=== PATIENT | female | born 1955 | race Caucasian/White ===

== ENCOUNTER 2018-08-16 16:32 | Emergency (ER) | payer BC, OTHER ==
[2018-08-16] MEDS ORDERED: Sodium Chloride 0.9% 1,000 ML IV SCH (17:15)
--- NOTE | 2018-08-16 17:21 | EDM.PDOC ---
<Jose R Orellana - Last Filed: 08/16/18 18:56> ED HPI GENERAL MEDICAL PROBLEM - General Chief Complaint: Abdominal Pain Stated Complaint: STOMCH PAIN RT SIDE Time Seen by Provider: 08/16/18 16:40 Source of Information: Reports: Patient, Family (), RN Notes Reviewed History Limitations: Reports: No Limitations - History of Present Illness INITIAL COMMENTS - FREE TEXT/NARRATIVE: The patient states that she developed sudden onset right upper quadrant and suprapubic pain around 14:00 this afternoon. The right upper quadrant pain was sharp and crampy in character, and has since resolved, but the suprapubic pain is crampy, and has improved, but is still persistent. Both pains waxed and waned. She felt improvement in her symptoms with belching, flatus, and having a bowel movement. She also felt better if she was supine, or in the left decubitus position. No associated fever, nausea, vomiting, constipation, diarrhea, or urinary symptoms. The patient states that she had similar symptoms about 10 or 15 years ago. An ultrasound of the right upper quadrant was reportedly negative. The cause of the patient's pain was never discovered. The patient states that she had a pie chef's salad around noon today. Patient's PCP is Dr. Erica Lombardo. Right Upper Abdomen Pain Score (Numeric/FACES): 2 - Related Data Allergies Allergy/AdvReac Type Severity Reaction Status Date / Time No Known Allergies Allergy Verified 08/16/18 16:49 Home Meds: Home Meds hydroCHLOROthiazide [Hydrochlorothiazide] 25 mg PO DAILY 08/16/18 [History] Past Medical History HEENT History: Reports: Impaired Vision Cardiovascular History: Reports: Hypertension Gastrointestinal History: Reports: GERD Genitourinary History: Reports: Renal Calculus, Urinary Incontinence (stress incontinence) Musculoskeletal History: Reports: Osteoarthritis - Past Surgical History HEENT Surgical History: Reports: Naso-Sinus Surgery GI Surgical History: Reports: Colonoscopy (x 2), EGD (x 1), Other (See Below) ( Hemorrhoid banding) Female Surgical History: Reports: D&C (x 3) Musculoskeletal Surgical History: Reports: Knee Replacement (bilateral) Social & Family History - Tobacco Use Years of Tobacco use: 8 Packs/Tins Daily: 0.5 Month/Year Tobacco Last Used: Quit 1984 - Alcohol Use Alcohol Use History: Yes Alcohol Use Frequency: Socially - Recreational Drug Use Recreational Drug Use: No - Living Situation & Occupation Living situation: Reports: , with Spouse Occupation: Retired ED ROS GENERAL - Review of Systems Review Of Systems: ROS reveals no pertinent complaints other than HPI. ED EXAM, GI/ABD - Physical Exam Exam: See Below Exam Limited By: No Limitations General Appearance: Alert, WD/WN, No Apparent Distress Eyes: Bilateral: Normal Appearance, EOMI Ears: Normal External Exam, Hearing Grossly Normal Nose: Normal Inspection Throat/Mouth: Normal Inspection, Normal Lips, Normal Voice, No Airway Compromise Head: Atraumatic, Normocephalic Neck: Normal Inspection, Full Range of Motion Respiratory/Chest: No Respiratory Distress, Lungs Clear, Normal Breath Sounds, No Accessory Muscle Use Cardiovascular: Normal Peripheral Pulses, Regular Rate, Rhythm, No Edema, No Gallop, No JVD, No Murmur, No Rub GI/Abdominal Exam: Normal Bowel Sounds, Soft, No Organomegaly, No Distention, No Abnormal Bruit, No Mass, Tender (Across the lower abdomen, with greatest tenderness in the right lower quadrant. Nontender elsewhere.) (Female) Exam: Deferred Rectal (Female) Exam: Deferred Back Exam: Normal Inspection, Full Range of Motion. No: CVA Tenderness (L), CVA Tenderness (R) Extremities: Normal Inspection, Normal Range of Motion, No Pedal Edema, Normal Capillary Refill Neurological: Alert, Oriented, Normal Cognition, No Motor/Sensory Deficits Psychiatric: Normal Affect Skin Exam: Warm, Dry, Intact, Normal Color, No Rash Course - Vital Signs Last Recorded V/S: Last Vital Signs Temp 36.6 C 08/16/18 16:47 Pulse 72 08/16/18 16:47 Resp 16 08/16/18 16:47 BP 172/98 H 08/16/18 16:47 Pulse Ox 100 08/16/18 16:47 - Orders/Labs/Meds Orders: Active Orders 24 hr Category Date Time Status Sodium Chloride 0.9% [Normal Saline] 1,000 ml Med 08/16/18 17:15 Active IV ASDIRECTED Medication Orders Sodium Chloride (Normal Saline) 1,000 mls @ 150 mls/hr IV ASDIRECTED ANNA Last Admin: 08/16/18 17:32 Dose: 150 mls/hr Labs: Laboratory Tests 08/16/18 08/16/18 08/16/18 Range/Units 17:28 17:28 17:33 WBC 6.72 (3.98-10.04) K/mm3 RBC 4.33 (3.98-5.22) M/mm3 Hgb 12.7 (11.2-15.7) gm/L Hct 37.6 (34.1-44.9) % MCV 86.8 (79.4-94.8) fl MCH 29.3 (25.6-32.2) pg MCHC 33.8 (32.2-35.5) g/dl RDW Std Deviation 41.7 (36.4-46.3) fL Plt Count 333 (182-369) K/mm3 MPV 8.3 L (9.4-12.3) fl Neutrophils % (Manual) 49 (40-60) % Band Neutrophils % 0 (0-10) % Lymphocytes % (Manual) 39 (20-40) % Atypical Lymphs % 0 % Monocytes % (Manual) 5 (2-10) % Eosinophils % (Manual) 4 (0.7-5.8) % Basophils % (Manual) 3 H (0.1-1.2) Platelet Estimate Adequate Plt Morphology Comment See note RBC Morph Comment Normal Sodium 138 (136-145) mEq/L Potassium 3.8 (3.5-5.1) mEq/L Chloride 101 (98-107) mEq/L Carbon Dioxide 28 (21-32) mEq/L Anion Gap 12.8 (5-15) BUN 11 (7-18) mg/dL Creatinine 0.8 (0.55-1.02) mg/dL Est Cr Clr Drug Dosing 70.01 mL/min Estimated GFR (MDRD) > 60 (>60) mL/min BUN/Creatinine Ratio 13.8 L (14-18) Glucose 106 (74-106) mg/dL Calcium 10.1 (8.5-10.1) mg/dL Total Bilirubin 0.3 (0.2-1.0) mg/dL AST 18 (15-37) U/L ALT 23 (14-59) U/L Alkaline Phosphatase 79 (46-116) U/L Total Protein 8.2 (6.4-8.2) g/dl Albumin 4.0 (3.4-5.0) g/dl Globulin 4.2 gm/dL Albumin/Globulin Ratio 1.0 (1-2) Urine Color Yellow (Yellow) Urine Appearance Clear (Clear) Urine pH 7.5 (5.0-8.0) Ur Specific [place] 1.015 (1.005-1.030) Urine Protein Negative (Negative) Urine Glucose (UA) Negative (Negative) Urine Ketones Negative (Negative) Urine Occult Blood Trace-intact H (Negative) Urine Nitrite Negative (Negative) Urine Bilirubin Negative (Negative) Urine Urobilinogen 0.2 (0.2-1.0) Ur Leukocyte Esterase Negative (Negative) Urine RBC 0-5 (0-5) /hpf Urine WBC Not seen (0-5) /hpf Ur Epithelial Cells Not Reportable Ur Squamous Epith Cells 0-5 (0-5) /hpf Urine Bacteria Not seen (FEW) /hpf Urine Mucus Not seen (FEW) /hpf Meds: Medications Generic Name Dose Route Start Last Admin Trade Name Freq PRN Reason Stop Dose Admin Sodium Chloride 1,000 mls @ 150 mls/hr 08/16/18 17:15 08/16/18 17:32 Normal Saline IV 150 mls/hr ASDIRECTED ANNA Administration Discontinued Medications Generic Name Dose Route Start Last Admin Trade Name Freq PRN Reason Stop Dose Admin Diatrizoate Meglum/Diatrizoate Sod 90 ml 08/16/18 17:33 08/16/18 18:37 Gastrografin 37% PO 08/16/18 17:34 90 ml ONETIME ONE Administration Iopamidol 100 ml 08/16/18 17:33 08/16/18 18:37 Isovue-370 (76%) IV 08/16/18 17:34 100 ml ONETIME ONE Administration - Re-Assessments/Exams Free Text/Narrative Re-Assessment/Exam: 08/16/18 17:12 While the patient initially complained of both right upper quadrant and suprapubic abdominal pain, on examination, she is tender only in the lower abdomen, with no tenderness to her right upper quadrant. The etiology of this is unclear, but I am concerned about unusual presentations of appendicitis or diverticulitis. I am therefore recommending a CT scan of the abdomen and pelvis with oral and IV contrast. I have ordered blood work and a urinalysis. The patient declined an offer for pain medication, and she reports no nausea at present, however, I will treat her with IV fluid. 08/16/18 19:00 The patient's CBC, CMP, and urinalysis are all unremarkable. The patient has undergone the CT scan of the abdomen and pelvis, however, the results are still pending. Care of the patient turned over to Dr. Wang at this time, for change of shift. Departure - Departure Disposition: Home, Self-Care 01 Clinical Impression: Abdominal pain of unknown cause - Discharge Information Referrals: Erica Lombardo MD [Primary Care Provider] - Forms: ED Department Discharge Additional Instructions: Return to emergency room with any questions problems worsening symptoms. Return in 24 hours if not better sooner if getting worse. Clear liquid diet for the next 24 hours then slowly advance as tolerated. If you have not had a desired bowel movement by the morning drink the bottle of mag citrate and see if this helps, if not may repeat mag citrate and 6 hours. <Tyler Wang - Last Filed: 08/16/18 19:23> Course - Re-Assessments/Exams Free Text/Narrative Re-Assessment/Exam: 08/16/18 19:19 Section is actually doing much better at this time. CT evaluation should no acute changes or obvious sources of her pain did notice this fairly full and consistent stool pattern throughout the colon. No other pathology identified. Discussed this with the patient has been and at this point she's can await and see if the oral contrast that she drank pushes a lot of this through and then we 'll try mag citrate in the morning. She understands in no uncertain terms return to emergency room if she thinks her condition is worsening and the cause of her discomfort is somewhat in question. Departure - Departure Time of Disposition: 19:21
[2018-08-16] MEDS ORDERED: Iopamidol 755 Mg/ML 200 ML Bottle IV ONE (17:33)
[2018-08-16] MEDS ORDERED: Diatrizoate Meglumine/Diatrizoate Sodium 37% 120 ML Bottle PO ONE (17:33)
--- NOTE | 2018-08-16 18:59 | CT ---
CT abdomen and pelvis Technique: Multiple axial sections were obtained from above the dome of the diaphragm inferiorly through to the pubic symphysis. Intravenous and oral contrast was utilized. Delayed images were obtained through the bladder. Comparison: No prior abdominal imaging is available. Findings: Visualized lung bases shows nothing acute. Cyst is noted within the dome of the right lobe of the liver measuring 3.1 cm. No additional abnormality is seen within the liver. Spleen appears within normal limits. Adrenal glands show no nodule. Kidneys show symmetric contrast enhancement without hydronephrosis or mass. Pancreas is normal. Aorta shows no aneurysm. No retroperitoneal adenopathy or mesenteric abnormalities are seen. No pelvic mass or adenopathy is seen. No free fluid or inflammatory change is seen. Delayed images shows contrast within the distal ureters and within the bladder. Slight increased stool is noted throughout the colon. Appendix is seen which is normal in size. No free fluid or inflammatory change is seen. Degenerative change and mild scoliosis is noted within the spine. Impression: 1. Mild increased stool throughout the colon. 2. Other incidental findings. Nothing acute is appreciated. Diagnostic code #2
[2018-08-16] MEDS ORDERED: Magnesium Citrate Solution 296 ML Bottle PO ONE (19:21)
== END 2018-08-16 19:30 | disposition home or self-care (01) ==
LOC: JD.ED 16:32
DX: R10.31 Right lower quadrant pain (principal); I10 Essential (primary) hypertension; K21.9 Gastro-esophageal reflux disease without esophagitis; Z79.899 Other long term (current) drug therapy; Z87.891 Personal history of nicotine dependence
CPT/HCPCS: 36415; 74177; 80053; 81001; 85007; 85027; 96360; 96361; 99284; A9270; J7040; Q9963; Q9967

== ENCOUNTER 2021-01-26 04:54 | Emergency (ER) | payer BC, OTHER ==
[2021-01-26] MEDS ORDERED: Ondansetron 4 MG/2 ML SDV IVPUSH ONE (05:40)
[2021-01-26] MEDS ORDERED: Sodium Chloride 0.9% 10 ML Syringe FLUSH PRN (05:40)
[2021-01-26] MEDS ORDERED: Sodium Chloride 0.9% 1,000 ML IV STA (05:40)
[2021-01-26] MEDS ORDERED: HYDROmorphone 0.5 MG/0.5 ML Syringe IVPUSH ONE (05:41)
--- NOTE | 2021-01-26 06:21 | EDM.PDOC ---
ED HPI GENERAL MEDICAL PROBLEM - General Chief Complaint: Gastrointestinal Problem Stated Complaint: COVID+ Time Seen by Provider: 01/26/21 05:09 Source of Information: Reports: Patient History Limitations: Reports: No Limitations - History of Present Illness INITIAL COMMENTS - FREE TEXT/NARRATIVE: The patient presents with right flank pain. This started about a week ago. The patient was also diagnosed with COVID. She got the Regeneron last week. She also has nausea and vomiting. She has lots of gas. She has no appetite. She still has belching and gas. She has seen a GI specialist in [place] before for similar issues. She had an EGD and colonoscopy done where the removed a few polyps. This has been worse since the COVID hit her. She has no fever, chills, cough, chest pain or shortness of breath. She did not get the vaccine. Onset: Gradual Duration: Day(s): Location: Reports: Abdomen, Back (right flank) Quality: Reports: Sharp Severity: Moderate Improves with: Reports: None Worsens with: Reports: None Associated Symptoms: Reports: Nausea/Vomiting. Denies: Chest Pain, Cough, Fever/Chills, Headaches, Shortness of Breath - Related Data Allergies Allergy/AdvReac Type Severity Reaction Status Date / Time No Known Allergies Allergy Verified 01/26/21 05:23 Home Meds: Home Meds hydroCHLOROthiazide [Hydrochlorothiazide] 25 mg PO DAILY 08/16/18 [History] Famotidine [Pepcid] 20 mg PO BEDTIME 01/26/21 [History] Ondansetron [Zofran ODT] 4 mg PO Q6H PRN #20 tab.dis 01/26/21 [Rx] Pantoprazole Sodium [Protonix] 40 mg PO DAILY 01/26/21 [History] dexAMETHasone [Dexamethasone] 6 mg PO Q6H #12 tab 01/26/21 [Rx] Past Medical History HEENT History: Reports: Impaired Vision Cardiovascular History: Reports: Hypertension Gastrointestinal History: Reports: GERD Genitourinary History: Reports: Renal Calculus, Urinary Incontinence Musculoskeletal History: Reports: Osteoarthritis - Infectious Disease History Infectious Disease History: Reports: Novel Coronavirus - Past Surgical History HEENT Surgical History: Reports: Naso-Sinus Surgery GI Surgical History: Reports: Colonoscopy, EGD, Other (See Below) Female Surgical History: Reports: D&C Musculoskeletal Surgical History: Reports: Knee Replacement Social & Family History - Tobacco Use Tobacco Use Status *Q: Never Tobacco User Second Hand Smoke Exposure: No - Recreational Drug Use Recreational Drug Use: No - Living Situation & Occupation Living situation: Reports: , with Spouse Occupation: Retired ED ROS GENERAL - Review of Systems Review Of Systems: See Below Constitutional: Reports: Malaise, Weakness, Fatigue. Denies: Fever, Chills HEENT: Reports: No Symptoms Respiratory: Reports: No Symptoms Cardiovascular: Reports: No Symptoms Endocrine: Reports: No Symptoms GI/Abdominal: Reports: Abdominal Pain, Nausea, Vomiting. Denies: Diarrhea : Reports: Flank Pain (right) ED EXAM, GI/ABD - Physical Exam Exam: See Below Exam Limited By: No Limitations General Appearance: Alert, No Apparent Distress Ears: Normal External Exam Nose: Normal Inspection Head: Atraumatic, Normocephalic Neck: Normal Inspection Respiratory/Chest: No Respiratory Distress, Lungs Clear, Normal Breath Sounds Cardiovascular: Regular Rate, Rhythm, No Edema, No Murmur GI/Abdominal Exam: Soft, No Organomegaly, No Mass, Tender (Moderate tenderness to the right flank and right abdomen) Course - Vital Signs Last Recorded V/S: Last Vital Signs Temp 97 F 01/26/21 05:20 Pulse 77 01/26/21 05:20 Resp 16 01/26/21 05:20 BP 168/97 H 01/26/21 05:20 Pulse Ox 98 01/26/21 05:20 - Orders/Labs/Meds Orders: Active Orders 24 hr Category Date Time Status Peripheral IV Care [RC] . DIRECTED Care 01/26/21 05:40 Active UA W/MICROSCOPIC [URIN] Stat Lab 01/26/21 07:04 Results Sodium Chloride 0.9% [Saline Flush] Med 01/26/21 05:40 Active 10 ml FLUSH ASDIRECTED PRN ED Antiemetic Medication Reflex [OM.PC] Stat Oth 01/26/21 05:40 Ordered Peripheral IV Insertion Adult [OM.PC] Stat Oth 01/26/21 05:40 Ordered Medication Orders Sodium Chloride (Sodium Chloride 0.9% 10 Ml Syringe) 10 ml FLUSH ASDIRECTED PRN PRN Reason: Keep Vein Open Last Admin: 01/26/21 05:58 Dose: 10 ml Documented by: KAYLEE Labs: Laboratory Tests 01/26/21 01/26/21 01/26/21 Range/Units 05:50 05:50 07:04 WBC 6.89 (3.98-10.04) K/mm3 RBC 4.94 (3.98-5.22) M/mm3 Hgb 14.5 D (11.2-15.7) gm/dl Hct 40.5 (34.1-44.9) % MCV 82.0 D (79.4-94.8) fl MCH 29.4 (25.6-32.2) pg MCHC 35.8 H (32.2-35.5) g/dl RDW Std Deviation 36.8 (36.4-46.3) fL Plt Count 247 D (182-369) K/mm3 MPV 8.9 L (9.4-12.3) fl Neut % (Auto) 61.0 (34.0-71.1) % Lymph % (Auto) 25.8 (19.3-51.7) % [place] % (Auto) 12.5 (4.7-12.5) % Eos % (Auto) 0.3 L (0.7-5.8) Baso % (Auto) 0.3 (0.1-1.2) % Neut # (Auto) 4.20 (1.56-6.13) K/mm3 Lymph # (Auto) 1.78 (1.18-3.74) K/mm3 Cannon # (Auto) 0.86 H (0.24-0.36) K/mm3 Eos # (Auto) 0.02 L (0.04-0.36) K/mm3 Baso # (Auto) 0.02 (0.01-0.08) K/mm3 Sodium 128 L D (136-145) mEq/L Potassium 3.2 L (3.5-5.1) mEq/L Chloride 90 L (98-107) mEq/L Carbon Dioxide 25 (21-32) mEq/L Anion Gap 16.2 H (5-15) BUN 8 (7-18) mg/dL Creatinine 0.7 (0.55-1.02) mg/dL Est Cr Clr Drug Dosing 79.99 mL/min Estimated GFR (MDRD) > 60 (>60) mL/min BUN/Creatinine Ratio 11.4 L (14-18) Glucose 109 H (70-99) mg/dL Calcium 9.2 (8.5-10.1) mg/dL Total Bilirubin 1.3 H (0.2-1.0) mg/dL AST 29 (15-37) U/L ALT 46 (14-59) U/L Alkaline Phosphatase 82 (46-116) U/L Total Protein 8.2 (6.4-8.2) g/dl Albumin 4.0 (3.4-5.0) g/dl Globulin 4.2 gm/dL Albumin/Globulin Ratio 1.0 (1-2) Lipase 134 (73-393) U/L Urine Color Yellow (Yellow) Urine Appearance Clear (Clear) Urine pH 7.0 (5.0-8.0) Ur Specific [place] 1.010 (1.005-1.030) Urine Protein Negative (Negative) Urine Glucose (UA) Negative (Negative) Urine Ketones Trace H (Negative) Urine Occult Blood Negative (Negative) Urine Nitrite Negative (Negative) Urine Bilirubin Negative (Negative) Urine Urobilinogen 0.2 (0.2-1.0) Ur Leukocyte Esterase Trace H (Negative) Meds: Medications Generic Name Dose Route Start Last Admin Trade Name Freq PRN Reason Stop Dose Admin Sodium Chloride 10 ml 01/26/21 05:40 01/26/21 05:58 Sodium Chloride 0.9% 10 Ml Syringe FLUSH 10 ml ASDIRECTED PRN Administration Keep Vein Open Discontinued Medications Generic Name Dose Route Start Last Admin Trade Name Freq PRN Reason Stop Dose Admin Hydromorphone HCl 0.5 mg 01/26/21 05:41 01/26/21 05:58 Hydromorphone 0.5 Mg/0.5 Ml Syringe IVPUSH 01/26/21 05:42 0.5 mg ONETIME ONE Administration Sodium Chloride 1,000 mls @ 1,000 mls/hr 01/26/21 05:40 01/26/21 05:58 Normal Saline IV 01/26/21 06:39 1,000 mls/hr .BOLUS STA Administration Ondansetron HCl 4 mg 01/26/21 05:40 01/26/21 05:58 Ondansetron 4 Mg/2 Ml Sdv IVPUSH 01/26/21 05:41 4 mg ONETIME ONE Administration - Re-Assessments/Exams Free Text/Narrative Re-Assessment/Exam: 01/26/21 06:21 I ordered an IV NS 1L bolus, zofran 4mg IV, dilaudid 0.5mg IV, labs, UA and a CT of her abdomen and pelvis without contrast. 01/26/21 06:52 Her CBC looks good. Her Na is low at 128. Her K was low at 3.2. Her anion gap was elevated at 16.2. Her lipase was normal. 01/26/21 07:[address] shows findings believed to be incidental. No renal calculi, ureteral dilatation or ureteral stone is seen. No finding is seen to indicate follow-up. I will discharge her home on some dexamethasone and zofran. Departure - Departure Time of Disposition: 08:00 Disposition: Home, Self-Care 01 Condition: Good Clinical Impression: COVID-19, Abdominal pain Nausea & vomiting Qualifiers: Vomiting type: unspecified Vomiting Intractability: non-intractable Qualified C ode(s): R11.2 - Nausea with vomiting, unspecified - Discharge Information *PRESCRIPTION DRUG MONITORING PROGRAM REVIEWED*: Not Applicable *COPY OF PRESCRIPTION DRUG MONITORING REPORT IN PATIENT GREGOR: Not Applicable Prescriptions: dexAMETHasone [Dexamethasone] 6 mg PO Q6H #12 tab Ondansetron [Zofran ODT] 4 mg PO Q6H PRN #20 tab.dis PRN Reason: Nausea\vomiting Referrals: Erica Lombardo MD [Primary Care Provider] - 1 Week Forms: ED Department Discharge Additional Instructions: Take the dexamethasone 1 1/2 pill daily until gone. Take the zofran every 6 hours as needed for nausea and vomiting. Drink plenty of fluids. Please return if you are worse. Sepsis Event Note (ED) - Evaluation Sepsis Screening Result: No Definite Risk - Focused Exam Vital Signs: Vital Signs Temp Pulse Resp BP Pulse Ox 01/26/21 05:20 97 F 77 16 168/97 H 98 - My Orders Last 24 Hours: My Active Orders 01/26/21 05:40 Peripheral IV Care [RC] . DIRECTED Sodium Chloride 0.9% [Saline Flush] 10 ml FLUSH ASDIRECTED PRN ED Antiemetic Medication Reflex [OM.PC] Stat Peripheral IV Insertion Adult [OM.PC] Stat 01/26/21 07:04 UA W/MICROSCOPIC [URIN] Stat - Assessment/Plan Last 24 Hours: My Active Orders 01/26/21 05:40 Peripheral IV Care [RC] . DIRECTED Sodium Chloride 0.9% [Saline Flush] 10 ml FLUSH ASDIRECTED PRN ED Antiemetic Medication Reflex [OM.PC] Stat Peripheral IV Insertion Adult [OM.PC] Stat 01/26/21 07:04 UA W/MICROSCOPIC [URIN] Stat
--- NOTE | 2021-01-26 07:46 | CT ---
CT abdomen and pelvis Technique: Multiple axial sections were obtained from above the dome of the diaphragm inferiorly through the pubic symphysis. Intravenous and oral contrast were not utilized. Study has been performed as a ureteral stone protocol. Comparison: Prior CT abdomen and pelvis exam of 08/16/18. Findings: Very slight atelectasis is seen within both lung bases. Lungs otherwise are clear. No significant change is seen from previous CT exam. Lobulated cyst is noted within the right lobe of the liver. This measures 3.1 cm in size and appears stable from previous exam. Spleen size is normal. Adrenal glands show no nodule. Pancreas shows no discrete abnormality. Surgical clips are seen from prior cholecystectomy. Abdominal aorta shows atherosclerotic calcification which continues into the iliac vessels. No aneurysm is seen. Kidneys show no abnormal calcifications. No ureteral dilatation or ureteral stone is seen. No mesenteric abnormalities are seen. No pelvic mass or adenopathy is identified. Appendix is seen and is normal in size. Scattered degenerative change is noted within the lumbar spine as well as scoliosis. Impression: 1. Findings believed to be incidental as noted above. 2. No renal calculi, ureteral dilatation or ureteral stone is seen. 3. No finding is seen to indicate follow-up. Diagnostic code #2 I mildly disagree with preliminary report from [facility], finalized on 01/26/21, 8:29 AM CDT, code 2
== END 2021-01-26 08:35 | disposition home or self-care (01) ==
LOC: JD.ED 04:54
DX: U07.1 COVID-19 (principal); R10.9 Unspecified abdominal pain; R11.2 Nausea with vomiting, unspecified; I10 Essential (primary) hypertension; K21.9 Gastro-esophageal reflux disease without esophagitis; Z79.899 Other long term (current) drug therapy
CPT/HCPCS: 36415; 74176; 80053; 81001; 83690; 85025; 96374; 96375; 99284; J1170; J2405; J7030

== ENCOUNTER 2021-10-31 22:59 | Inpatient (IN) | payer OTHER ==
[2021-11-01] MEDS ORDERED: Ondansetron 4 MG/2 ML SDV IVPUSH ONE (00:17)
[2021-11-01] MEDS ORDERED: HYDROmorphone 1 MG/ML Syringe IVPUSH STA (00:17)
[2021-11-01] MEDS ORDERED: Dicyclomine 20 MG/2 ML SDV IM ONE (00:19)
[2021-11-01] MEDS ORDERED: Loperamide 2 MG Cap PO STA (00:21)
[2021-11-01] MEDS ORDERED: Dicyclomine 10 MG Cap PO STA (00:21)
[2021-11-01] MEDS ORDERED: Sodium Chloride 0.9% 1,000 ML IV SCH (00:30)
[2021-11-01] MEDS ORDERED: Sodium Chloride 0.9% 1,000 ML IV ONE (01:05)
[2021-11-01] MEDS: Potassium Chloride 10 MEQ in Premix Bag 1 BAG IV SCH ×4 (02:02→05:34)
[2021-11-01] MEDS: Lactated Ringers 1,000 ML IV SCH ×5 (02:24→21:04)
[2021-11-01] MEDS ORDERED: Ondansetron 4 MG/2 ML SDV IVPUSH PRN (03:55)
[2021-11-01] MEDS ORDERED: HYDROmorphone 0.5 MG/0.5 ML Syringe IVPUSH PRN ×2 (03:55→05:54)
[2021-11-01] MEDS ORDERED: oxyCODONE 5 MG Tab PO PRN (05:52)
[2021-11-01] MEDS ORDERED: Lactated Ringers 1,000 ML IV ONE (05:54)
[2021-11-01] MEDS ORDERED: hydrALAZINE 20 MG/ML SDV IVPUSH PRN (05:55)
[2021-11-01] MEDS ORDERED: Potassium Chloride 20 MEQ Tab.ER PO SCH ×2 (07:00→07:30)
[2021-11-01] MEDS: Enoxaparin 40 MG/0.4 ML Syringe SUBCUT SCH (08:26)
[2021-11-01] MEDS: Pantoprazole 40 MG Vial IVPUSH SCH (08:26)
[2021-11-01] MEDS ORDERED: Lactated Ringers 1,000 ML IV SCH (12:15)
[2021-11-01] MEDS: Acetaminophen 325 MG Tab PO PRN (21:22)
[2021-11-02] MEDS: Lactated Ringers 1,000 ML IV SCH ×2 (04:06→11:23)
[2021-11-02] MEDS: Acetaminophen 325 MG Tab PO PRN ×2 (05:07→20:06)
[2021-11-02] MEDS ORDERED: Magnesium Sulfate/Water 2 GM in Premix Bag 1 BAG IV ONE (08:45)
[2021-11-02] MEDS ORDERED: Acetaminophen/Butalbital/Caffeine 325-50-40 MG Tab PO PRN (08:45)
[2021-11-02] MEDS: Pantoprazole 40 MG Vial IVPUSH SCH (09:14)
[2021-11-02] MEDS: Enoxaparin 40 MG/0.4 ML Syringe SUBCUT SCH (09:19)
[2021-11-03] MEDS: Enoxaparin 40 MG/0.4 ML Syringe SUBCUT SCH (08:14)
[2021-11-03] MEDS ORDERED: Pantoprazole 40 MG Tab.CR PO SCH (09:00)
== END 2021-11-03 10:00 | disposition home or self-care (01) | DRG 439 ==
LOC: JD.ED 22:59 → JD.MS 11-01 02:08 → JD.OB 11-01 14:06
PROVIDERS: ADMIT Hospitalist; ATTEND Hospitalist
DX: K85.00 Idiopathic acute pancreatitis without necrosis or infection (principal); R18.8 Other ascites; E83.42 Hypomagnesemia; I10 Essential (primary) hypertension; K21.9 Gastro-esophageal reflux disease without esophagitis; E87.6 Hypokalemia; K52.9 Noninfective gastroenteritis and colitis, unspecified; R74.01 Elevation of levels of liver transaminase levels; H54.7 Unspecified visual loss; M19.90 Unspecified osteoarthritis, unspecified site; Z96.653 Presence of artificial knee joint, bilateral; Z87.891 Personal history of nicotine dependence; Z86.16 Personal history of COVID-19; Z90.49 Acquired absence of other specified parts of digestive tract; Z86.010 Personal history of colon polyps; Z79.899 Other long term (current) drug therapy; Z87.442 Personal history of urinary calculi; Z86.19 Personal history of other infectious and parasitic diseases
CPT/HCPCS: 36415; 74177; 74177-26; 76700; 76700-26; 80053; 80061; 81001; 83605; 83690; 83735; 84145; 85007; 85025; 85027; 96361; 96365; 96375; 99284; 99285-25; A9270-GY; C9113; J1170; J1650; J2405; J3475; J3480; J7030; J7120

== ENCOUNTER 2021-12-21 11:42 | Emergency (ER) | payer OTHER ==
[2021-12-21] MEDS ORDERED: Sodium Chloride 0.9% 10 ML Syringe FLUSH PRN (12:10)
[2021-12-21 13:13] LABS: ESTIMATED GFR 97 mL/min (>60)
== END 2021-12-21 14:19 | disposition home or self-care (01) ==
LOC: JD.ED 11:42
DX: M54.50 Low back pain, unspecified (principal); I10 Essential (primary) hypertension
CPT/HCPCS: 36415; 80053; 81001; 83690; 85025; 86140; 99283; 99284; J3490

== ENCOUNTER 2021-12-27 03:10 | Emergency (ER) | payer OTHER ==
[2021-12-27] MEDS ORDERED: HYDROmorphone 1 MG/ML Syringe IVPUSH STA (04:02)
[2021-12-27] MEDS ORDERED: Ondansetron 4 MG/2 ML SDV IVPUSH ONE (04:02)
[2021-12-27] MEDS ORDERED: Sodium Chloride 0.9% 1,000 ML IV SCH (04:15)
[2021-12-27] MEDS ORDERED: Iopamidol 612 MG/ML 100 ML Bottle IVPUSH ONE (04:27)
[2021-12-27] MEDS: Sodium Chloride 0.9% 10 ML Syringe FLUSH PRN ×2 (04:38→04:56)
[2021-12-27] MEDS ORDERED: Dicyclomine 10 MG Cap PO STA (07:24)
== END 2021-12-27 07:48 | disposition home or self-care (01) ==
LOC: JD.ED 03:10
DX: R10.9 Unspecified abdominal pain (principal); I10 Essential (primary) hypertension; M19.90 Unspecified osteoarthritis, unspecified site; K21.9 Gastro-esophageal reflux disease without esophagitis; Z86.16 Personal history of COVID-19
CPT/HCPCS: 36415; 74177; 80053; 81001; 83690; 83735; 85007; 85027; 96374; 96375; 99284; A9270; J1170; J2405; J3490; J7030; Q9967

== ENCOUNTER 2022-05-27 17:04 | Emergency (ER) | payer OTHER ==
[2022-05-27] MEDS ORDERED: Ondansetron 4 MG/2 ML SDV IVPUSH ONE (17:29)
[2022-05-27] MEDS ORDERED: Sodium Chloride 0.9% 10 ML Syringe FLUSH PRN (17:29)
[2022-05-27] MEDS ORDERED: HYDROmorphone 1 MG/ML Syringe IVPUSH ONE (17:30)
[2022-05-27] MEDS ORDERED: Sodium Chloride 0.9% 1,000 ML IV SCH ×2 (17:30→19:00)
[2022-05-27 18:09] LABS: CORONAVIRUS COVID-19 NAA NEGATIVE (NEGATIVE)
[2022-05-27] MEDS ORDERED: diphenhydrAMINE 50 MG/ML SDV IVPUSH ONE (18:55)
[2022-05-27] MEDS ORDERED: Metoclopramide 10 MG/2 ML SDV IVPUSH ONE (18:55)
[2022-05-27] MEDS ORDERED: Ketorolac 30 MG/ML SDV IVPUSH ONE (18:55)
== END 2022-05-27 21:47 | disposition home or self-care (01) ==
LOC: JD.ED 17:04
DX: R51.9 Headache, unspecified (principal); R10.84 Generalized abdominal pain; R11.2 Nausea with vomiting, unspecified; I10 Essential (primary) hypertension; K21.9 Gastro-esophageal reflux disease without esophagitis; Z86.16 Personal history of COVID-19; Z20.822 Contact with and (suspected) exposure to COVID-19
CPT/HCPCS: 0241U; 36415; 70450; 80053; 83690; 85025; 96361; 96374; 96375; 99284; J1170; J1200; J1885; J2405; J2765; J3490; J7030

== ENCOUNTER 2022-08-31 14:55 | Emergency (ER) | payer OTHER ==
[2022-08-31 16:55] LABS: ESTIMATED GFR 82 mL/min (>60)
[2022-08-31 17:03] LABS: CORONAVIRUS COVID-19 NAA NEGATIVE (NEGATIVE)
== END 2022-08-31 17:35 | disposition home or self-care (01) ==
LOC: JD.ED 14:55
DX: H93.8X3 Other specified disorders of ear, bilateral (principal); I10 Essential (primary) hypertension; Z86.16 Personal history of COVID-19; Z20.822 Contact with and (suspected) exposure to COVID-19
CPT/HCPCS: 0241U; 36415; 80053; 85025; 86140; 99283; 99284